=== PATIENT | female | born 1940 | race Caucasian/White ===

== ENCOUNTER 2017-04-05 14:45 | Emergency (ER) | payer MEDICARE, OTHER ==
--- NOTE | 2017-04-05 15:01 | ERNOTE ---
Abdominal HPI - Narrative Date of Service: 04/05/17 - General Chief Complaint: Abdominal Pain Source: patient Exam Limitations: no limitations - Immun/Allergies/Home Medications Allergies/Adverse Reactions: Allergies alendronate sodium Adverse Reaction (Unknown, Verified 04/05/17 15:00) pt states has cramps in legs when takes this med Home Medications: HOME MEDICATIONS Diltiazem HCl [Diltiazem ER] 300 mg PO DAILY 04/12/13 [Last Taken Unknown] Lactobacillus Rhamnosus GG [Probiotic] 1 each PO BID 04/12/13 [Last Taken Unknown] Pravastatin Sodium 10 mg PO DAILY 04/12/13 [Last Taken Unknown] Vitamin D3 1,000 Unit Tablet 1 tab PO DAILY 04/12/13 [Last Taken Unknown] Warfarin Sodium [Coumadin] 2.5 mg PO SUTUTHSA 04/12/13 [Last Taken Unknown] Warfarin Sodium [Coumadin] 5 mg PO MOWEFR 04/12/13 [Last Taken Unknown] - History of Present Illness Narrative: PT SEEN IN CLINIC EARLIER TODAY FOR ABD. PAIN COMPLAINT. SHE WAS SENT HOME WITH PRESUMPTIVE DX OF [place] BUT RADIOLOGY CALLED THEM BACK WITH A READING OF HER 3 VIEW ABDOMEN SUGGESTING EARLY DIFFUSE COLONIC AND SMALL BOWEL ILEUS VERSUS PARTIAL , EARLY , SMALL BOWEL OBSTRUCTION SO THEY CALLED HER AT HOME AND HAD HER COME TO THE ER. SHE DENIES VOMITING OR DIARRHEA. SHE STATES SHE HAS BEEN HAVING SOME ABDOMINAL PAIN FOR 7-8 DAYS BUT OTHERS IN HER FAMILY HAVE HAD "STOMACH FLU" WHICH IS WHAT SHE FIGURED , SHE HAD WELL. NO FEVER. SHE HAS BEEN EATING , LAST MEAL AT NOON TODAY.SHE SAYS THE PAIN IS MAINLY ACROSS HER LOWER ABDOMEN. SHE SAYS SHE GETS CONSTIPATED SOMETIMES AND THAT SHE HAS A SMALL HARD STOOL THIS MORNING. SHE DENIES UTI SX. HER WBC AT CLINIC = 9.8 WITH 80% SEGS. SHE HAD CRP = 12.8. CMP WAS FAIRLY NORMAL WITH MILDLY ELEVATED K+ = 4.9AND CREAT =1.58. SHE SAYS SHE HAS PHX OF RENAL FAILURE AND WAS ON DIALYSIS YEARS AGO, > 10 YEARS , AFTER SHE WAS SEEN IN [place] FOR DVT AND AND A CARDIAC THROMBUS THAT MIGRATED TO THE LUNG DURING SURGERY GIVING HER PE WELL. SHE STATES THAT SHE WAS IN THE HOSPITAL THERE FOR 90 DAYS BACK IN 2003. I FIND NO RECORD OF THAT HERE. BECAUSE OF THE CLOTS SH IS ALSO ON COUMADIN.( NO INR WAS DONE EARLIER IN CLINIC). Timing: constant Review of Systems - Review of Systems Constitutional: Present: See HPI EYE: Present: no symptoms reported ENT: Present: no symptoms reported Respiratory: Present: no symptoms reported Cardiology: Present: no symptoms reported Gastrointestinal/Abdominal: Present: See HPI, constipation - CHRONIC HARD STOOLS , abdominal pain. Absent: nausea, vomiting, diarrhea Genitourinary: Present: no symptoms reported Musculoskeletal: Present: no symptoms reported Skin: Present: no symptoms reported Neurological: Present: no symptoms reported Endocrine: Present: no symptoms reported Hematologic/Lymphatic: Present: no symptoms reported Psych: Present: no symptoms reported All Other Systems: All systems neg except as marked - Patient's Past Medical History Patient History - Medical: Renal Disease, Renal Failure - IN PAST Patient History - Cardiac/Respiratory: Hypertension, Hyperlipidemia, Pulmonary Embolism - Social History Living Situations: other - WITH A DAUGHTER. Abuse History: No History of abuse Psych History: No pertinent hx Smoking Status: Never smoker Physical Exam - Physical Exam General Appearance: Present: wd/wn, alert, no apparent distress - BRIGHT ALERT 76 YO LADY WITH NAD. A & O & COOP Respiratory: Present: no respiratory distress, normal breath sounds, no accessory muscle use, chest nontender, lungs clear Cardiovascular/Chest: Present: regular rate, rhythm, no murmur, normal peripheral pulses Peripheral Pulses: N=norm/S=strong/W=weak/B=bound/A=absent: Dorsalis-pedis (R): Normal, Dorsalis-pedis (L): Normal Gastrointestinal/Abdominal: Present: normal bowel sounds, nondistended, soft, no organomegaly, tenderness - SHE HAS MILD TO MODERATE TENDERNESS TO PALPATION OF RUQ, RLQ AND LLQ. SHE SEEMS MOST TENDER WITH SOME GUARDING TO RIGHT LATERAL MID ABDOMEN . NO REBOUND. NO MASSES. Back Exam: Present: normal inspection, no CVA tenderness Extremity Exam: Present: normal inspection, no edema Neurological Exam: Present: alert, oriented, normal mood/affect Skin Exam: Present: normal color ED Progress - Results and Orders Patient's Lab Results:: I have reviewed the patient's lab results. - Vital Signs Patient's Vital Signs:: I have reviewed the patient's vital signs. - CT/Ultrasound CT/Ultrasound Narrative: CT ,ABD & PEL WITH CONTRAST = ACUTE APPENDICITIS WITH "DILATED APPENDIX AND SURRONDING INFLAMMATION" WITH INCIDENTAL H.H. AND BILATERAL OVARIAN CYSTS. - Progress/Reassessment Progress:: Unchanged - Transfer of Care Expected Disposition: Transfer - I TALKED WEITH THE SURGEON [employer] OFFICE INSPECTOR WHO IS LEAVING A 0700 TOMORROW AND WHO THINKS THE PT SHOULD BE TRANSFERED . THE PT'S PC IS DR BARRON FROM [place] SO I CALLED [facility] ER AND THEY CONTACTED DR SONG WHO ACCEPTED HER. I EXPLAINED THIS TO THE PT WHO RELAYED A CALL TO HER DAUGHTER WHO WILL BE RETURNING TO THE ER. . Plan - Plan Plan: TRANSFER TO [facility] TO FOLLOW WITH DR SONG, SURGERY. Departure - Departure Clinical Impression: Acute appendicitis Qualifiers: Acute appendicitis type: with localized peritonitis Qualified Code(s): K35.3 - Acute appendicitis with localized peritonitis Disposition: [facility] Condition: Fair Referrals: MIGUEL ÁNGEL BARRON [Primary Care Provider] -
[2017-04-05] MEDS ORDERED: NORMAL SALINE 1,000 ML IV ONE ×2 (15:04→18:51)
[2017-04-05] MEDS ORDERED: DIATRIZOATE MEGLU/DIATRIZO SOD 30 ML BTL ONE (15:14)
[2017-04-05 15:41] LABS: Prothrombin Time (Patient) 21.1 Seconds (9.4-11.4)
[2017-04-05 15:44] LABS: INR 2.03 INR (0.90-1.10)
[2017-04-05 15:57] LABS: Urine Bilirubin Negative (NEGATIVE); Urine Ketone 5 mg/dL (NEGATIVE); Urine Protein 15 mg/dL (NEGATIVE); Urine Urobilinogen Normal (NORMAL)
[2017-04-05 15:59] LABS: Urine Appearance Clear; Urine Blood 10 /ul (NEGATIVE); Urine Color Yellow; Urine Nitrite Positive (NEGATIVE)
[2017-04-05 16:00] LABS: Urine Bacteria 3+; Urine RBC None Seen /hpf (0-5)
[2017-04-05 16:01] LABS: Urine Mucus Few - 1+; Urine Yeast TRACE
--- OUTSIDE RECORDS SUMMARY | 2017-04-05 17:06 | XMS REPORT | Continuity of Care Document ---
:1940 Author Organization [facility] ([facility]) Address [address] [place] [address] Phone [phone] Care Team Providers Name Role Phone Sean Tripp Primary Care Provider [phone] Source Comments This disclosure is being made pursuant to the Care Everywhere program, applicable federal and state laws, and may not contain all informaitonavailable regarding this patient.[facility] ([facility]) Active Allergies and Adverse Reactions Not on File Current Medications Not on file Active Problems Not on file Social History Tobacco Use Types Packs/Day Years Used Date Never Assessed Last Filed Vital Signs Vital Sign Reading Time Taken Blood Pressure - - Pulse - - Temperature - - Respiratory Rate - - Height - - Weight 76.898 kg (169 lb 8.5 oz) 06/16/2004 8:00 AM CDT Body Mass Index - - Oxygen Saturation - - Plan of Care Health Maintenance Due Date Last Done Comments Hepatitis B Vaccine (1 of 3 - Primary Series) 1940 Tdap Vaccine 1949 Lipid Disorder Screening 1956 Td Vaccine 1956 Mammogram 1978 Colonoscopy 08/10/1988 Zoster Vaccine 1998 Osteoporosis Screening (DXA Bone Density) 2003 Pneumococcal Vaccine (1 of 2 - PCV13) 2003 Influenza Vaccine: Seasonal (#1) 06/27/2016 Results from Last 3 Months Not on file
[2017-04-05 20:39] VITALS: BP 132/81
== END 2017-04-05 20:25 | disposition short-term general hospital (02) ==
LOC: ER 14:45
DX: K35.3 Acute appendicitis with localized peritonitis (principal)